=== PATIENT | female | born 1960 | race Caucasian/White ===

== ENCOUNTER 2017-11-06 18:52 | Emergency (ER) | payer SELFPAY ==
--- OUTSIDE RECORDS SUMMARY | 2017-11-06 18:57 | XMS REPORT ---
Author Author Abeba Celaya [facility] Address [address] [place], [place] [id number] Care Team Providers Care Purchasing Engineer Name Role Phone Abeba Celaya PCP Abeba Celaya PreferredProvider Allergies and Adverse Reactions Name Reaction Notes NO KNOWN DRUG ALLERGIES Plan of Treatment Planned Activity Comments Planned Date Planned Time Plan/Goal Urine Culture, [place] Count 11/01/2017 12:00 AM Medications Active Name Start Date Estimated Completion Date SIG Comments levothyroxine 75 mcg oral tablet 05/06/2017 TAKE 1 BY MOUTH EVERY MORNING DAILY omeprazole 40 mg oral capsule,delayed release(DR/EC) 05/30/2017 take 1 capsule (40 mg) by oral route once daily before a meal for 90 days Zantac 150 mg oral tablet 10/18/2017 11/17/2017 1 am and 1 pm Cipro 500 mg oral tablet 11/01/2017 11/08/2017 take 1 tablet (500 mg) by oral route every 12 hours for 7 days Zorvolex 35 mg oral capsule 11/01/2017 12/01/2017 take 1 capsule (35 mg) by oral route 3 times per day for 30 days Name Start Date Expiration Date SIG Comments Retin-A topical cream 0.025 % apply to the affected area(s) by topical route once daily at bedtime Zithromax Z-Nathaniel 250 mg oral tablet 09/07/2016 09/12/2016 take 2 tablets (500 mg) by oral route once daily for 1 day then 1 tablet (250 mg) by oral route once daily for 4 days Zorvolex 35 mg oral capsule 10/18/2017 10/23/2017 take 1 capsule (35 mg) by oral route 3 times per day for 5 days Discontinued Name Start Date Discontinued Date SIG Comments Retin-A topical cream 0.025 % 04/30/2014 03/08/2017 apply to the affected area(s) by topical route once daily at bedtime Sunscreen SPF 30 04/30/2014 03/08/2017 apply q2h while outdoors, q1h if swimming or sweating Vaseline 04/30/2014 03/08/2017 apply to treated area Protonix 40 mg oral tablet,delayed release (DR/EC) 03/08/2017 11/01/2017 TAKE 1 BY MOUTH DAILY amoxicillin 875 mg oral tablet 04/07/2017 10/18/2017 take 1 tablet (875 mg) by oral route every 12 hours for 10 days esomeprazole magnesium 40 mg oral capsule,delayed release(DR/EC) 05/06/2017 take 1 capsule (40 mg) by oral route once daily for 90 days Problem List Description Status Onset Actinic keratosis Active 04/30/2014 Hypothyroidism (acquired) Active 04/15/2017 GERD without esophagitis Active 04/15/2017 Atrophic Vaginitis Active 04/15/2017 Menopause Active 04/15/2017 Vital Signs Date Time BP-Sys(mm[Hg] BP-Humera(mm[Hg]) HR(bpm) RR(rpm) Temp WT HT HC BMI BSA BMI Percentile O2 Sat(%) 11/01/2017 11:52:00 AM 128 mmHg 78 mmHg 82 bpm 18 rpm 98.1 F 200 lbs 67 in 31.3241 kg/m 2.0709 m 99 % 10/18/2017 3:24:00 PM 132 mmHg 82 mmHg 78 bpm 18 rpm 98.8 F 200.25 lbs 67 in 31.36 kg/m2 2.07 m2 98 % 03/08/2017 8:35:00 AM 124 mmHg 74 mmHg 82 bpm 18 rpm 97.8 F 189.375 lbs 67 in 29.66 kg/m 2.0151 m 97 % 04/30/2014 11:48:00 AM 180 lbs 67 in 28.1917 kg/m 1.96 m2 Social History Name Description Comments Tobacco Never smoker Alcohol Never 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 Date Ordered Description Order Status 03/08/2017 12:00 AM LIPID PANEL Reviewed 03/08/2017 12:00 AM COMPLETE CBC W/AUTO DIFF WBC Reviewed 03/08/2017 12:00 AM COMPREHEN METABOLIC PANEL Reviewed 03/08/2017 12:00 AM ASSAY THYROID STIM HORMONE Reviewed 03/08/2017 12:00 AM ASSAY TRIIODOTHYRONINE (T3) Reviewed 03/08/2017 12:00 AM ASSAY OF FREE THYROXINE Reviewed 03/08/2017 12:00 AM ROUTINE VENIPUNCTURE Reviewed 11/01/2017 11:58 AM URINALYSIS AUTO W/O SCOPE Reviewed 11/01/2017 12:00 AM URINALYSIS AUTO W/O SCOPE Reviewed Results Summary Date and Description Results 03/08/2017 8:55 AM WBC 5.5 RBC 4.79 HGB 15.10 g/dLHCT 45.40 %MCV 95.0 fLMCH 31.50 pgMCHC 33.30 g/dLRDW SD 43 RDW CV 12.30 %MPV 10.10 fLPLT 266 NRBC# 0.00 NRBC% 0.0 %NEUT 67.90 %%LYMP 23.90 %%MONO 6.40 %%EOS 0.90 %%BASO 0.70 %#NEUT 3.72 #LYMP 1.31 #MONO 0.35 #EOS 0.05 #BASO 0.04 MANUAL DIFF NOT IND TSH 2.340 uIU/mLFREE T4 1.19 T3 TOTAL 74.0 ng/dLGLUCOSE 107.0 mg/dLSODIUM 141.0 mmol/ LPOTASSIUM 4.10 mmol/LCHLORIDE 102.0 mmol/LCO2 30.0 mmol/LBUN 8.0 mg/ dLCREATININE 0.80 mg/dLSGOT/AST 24.0 IU/LSGPT/ALT 30.0 IU/LALK PHOS 87.0 IU/ LTOTAL PROTEIN 7.50 g/dLALBUMIN 4.80 g/dLTOTAL BILI 0.50 mg/dLCALCIUM 10.0 mg/ dLAGE 57 GFR NonAA 74 GFR AA 90 eGFR >60 mL/min/1.73meGFR AA* >60 TRIGLYCERIDES 113.0 mg/dLCHOLESTEROL 218.0 mg/dLHDL 59.0 mg/dLTOT CHOL/HDL 3.7 LDL (CALC) 136.0 mg/dL 11/01/2017 11:58 AM Clarity Ur cloudy Urine-Color pale yellow Glucose Ur-sCnc negative Bilirub Ur Ql negative Ketones Ur Ql Strip negative Sp Gr Ur Qn 1.000 Hgb Ur Ql Strip negative pH Ur-LsCnc 7.0 Prot Ur Ql Strip trace Urobilinogen Ur- mCnc negative Nitrite Ur Ql Strip negative WBC # Ur moderate History Of Immunizations Not available. History of Past Illness Name Date of Onset Comments No hx of skin cancer Actinic keratosis Seborrheic keratoses, inflamed Seborrheic keratosis Benign nevus Actinic keratosis 04/30/2014 Hypothyroidism GERD Hypothyroidism (acquired) 04/15/2017 GERD without esophagitis 04/15/2017 Atrophic Vaginitis 04/15/2017 Menopause 04/15/2017 Actinic keratosis Apr 30 2014 11:50AM General medical examination; routine general medical examination at a health care facility Mar 08 2017 8:38AM Hypothyroidism (acquired) Mar 08 2017 8:38AM GERD without esophagitis Mar 08 2017 8:38AM Atrophic vaginitis Mar 08 2017 8:38AM Menopause Mar 08 2017 8:38AM Acid Reflux Oct 18 2017 3:27PM Rib pain on left side Oct 18 2017 3:27PM Arthralgia of right temporomandibular joint Oct 18 2017 3:27PM Acute mucoid otitis media of right ear Nov 01 2017 11:58AM Cystitis Nov 01 2017 11:58AM Arthralgia of right temporomandibular joint Nov 01 2017 11:58AM Rib pain on left side Nov 01 2017 11:58AM Payers Insurance Name Company Name Plan Name Plan Number Policy Number Policy Group Number Start Date BCBS [facility] [id number] N/A BCBS [employer] [facility] [id number] N/A History of Encounters Visit Date Visit Type Provider 11/01/2017 Office visit Abeba Celaya APRN 10/18/2017 Office visit Abeba Celaya LIQUOR DEPARTMENT MANAGER 03/08/2017 Office visit 03/08/2017 Office visit Abeba Celaya LIQUOR DEPARTMENT MANAGER 04/30/2014 Office visit Shanelle العلي MD
--- OUTSIDE RECORDS SUMMARY | 2017-11-06 18:57 | XMS REPORT ---
Author Author Abeba Celaya [facility] Address [address] [place], [place] [id number] Care Team Providers Care Door Clamper Name Role Phone Abeba Celaya PCP Abeba Celaya PreferredProvider Allergies and Adverse Reactions Name Reaction Notes NO KNOWN DRUG ALLERGIES Plan of Treatment Not available. Medications Active Name Start Date Estimated Completion Date SIG Comments Protonix 40 mg oral tablet,delayed release (DR/EC) 03/08/2017 TAKE 1 BY MOUTH DAILY esomeprazole magnesium 40 mg oral capsule,delayed release(DR/EC) 05/06/2017 take 1 capsule (40 mg) by oral route once daily for 90 days levothyroxine 75 mcg oral tablet 05/06/2017 TAKE 1 BY MOUTH EVERY MORNING DAILY omeprazole 40 mg oral capsule,delayed release(DR/EC) 05/30/2017 take 1 capsule (40 mg) by oral route once daily before a meal for 90 days Zantac 150 mg oral tablet 10/18/2017 11/17/2017 1 am and 1 pm Zorvolex 35 mg oral capsule 10/18/2017 10/23/2017 take 1 capsule (35 mg) by oral route 3 times per day for 5 days Name Start Date Expiration Date SIG Comments Retin-A topical cream 0.025 % apply to the affected area(s) by topical route once daily at bedtime Zithromax Z-Nathaniel 250 mg oral tablet 09/07/2016 09/12/2016 take 2 tablets (500 mg) by oral route once daily for 1 day then 1 tablet (250 mg) by oral route once daily for 4 days Discontinued Name Start Date Discontinued Date SIG Comments Retin-A topical cream 0.025 % 04/30/2014 03/08/2017 apply to the affected area(s) by topical route once daily at bedtime Sunscreen SPF 30 04/30/2014 03/08/2017 apply q2h while outdoors, q1h if swimming or sweating Vaseline 04/30/2014 03/08/2017 apply to treated area amoxicillin 875 mg oral tablet 04/07/2017 10/18/2017 take 1 tablet (875 mg) by oral route every 12 hours for 10 days Problem List Description Status Onset Actinic Keratosis Active 04/30/2014 Hypothyroidism (acquired) Active 04/15/2017 GERD without esophagitis Active 04/15/2017 Atrophic Vaginitis Active 04/15/2017 Menopause Active 04/15/2017 Vital Signs Date Time BP-Sys(mm[Hg] BP-Humera(mm[Hg]) HR(bpm) RR(rpm) Temp WT HT HC BMI BSA BMI Percentile O2 Sat(%) 10/18/2017 3:24:00 PM 132 mmHg 82 mmHg 78 bpm 18 rpm 98.8 F 200.25 lbs 67 in 31.3633 kg/m 2.0722 m 98 % 03/08/2017 8:35:00 AM 124 mmHg 74 mmHg 82 bpm 18 rpm 97.8 F 189.375 lbs 67 in 29.66 kg/m2 2.02 m2 97 % 04/30/2014 11:48:00 AM 180 lbs 67 in 28.19 kg/m2 1.96 m2 Social History Name Description Comments [...] Reviewed 03/08/2017 12:00 AM ROUTINE VENIPUNCTURE Reviewed Results Summary Date and Description Results [...] mg/dLTOT CHOL/HDL 3.7 LDL (CALC) 136.0 mg/dL History Of Immunizations Not available. History of Past Illness Name Date of Onset Comments No hx of skin cancer Actinic Keratosis Seborrheic keratoses, inflamed Seborrheic keratosis Benign nevus Actinic Keratosis 04/30/2014 Hypothyroidism GERD Hypothyroidism (acquired) 04/15/2017 GERD [...] right temporomandibular joint Oct 18 2017 3:27PM Payers Insurance Name Company Name Plan Name Plan Number Policy Number Policy Group Number Start Date BCBS [facility] [id number] N/A BCBS [facility] [id number] N/A History of Encounters Visit Date Visit Type Provider 10/18/2017 Office visit Aebba Celaya LINING FINISHER 03/08/2017 Office visit 03/08/2017 Office visit Abeba Celaya LINING FINISHER 04/30/2014 Office visit Shanelle العلي MD
--- OUTSIDE RECORDS SUMMARY | 2017-11-06 18:58 | XMS REPORT ---
Author Author Abeba Celaya [facility] Address [address] [place], [place] [id number] Care Team Providers Care Purchasing Intern Name Role Phone Abeba Celaya PCP [phone] Abeba Celaya PreferredProvider [phone] Allergies and Adverse Reactions Name Reaction Notes NO KNOWN DRUG ALLERGIES Plan of Treatment Not available. Medications Active Name Start Date Estimated Completion Date SIG Comments levothyroxine 75 mcg oral tablet 03/08/2017 TAKE 1 BY MOUTH EVERY MORNING DAILY Protonix 40 mg oral tablet,delayed release (DR/EC) 03/08/2017 TAKE 1 BY MOUTH DAILY amoxicillin 875 mg oral tablet 04/07/2017 take 1 tablet (875 mg) by oral route every 12 hours for 10 days Name Start Date Expiration Date SIG [...] Vaseline 04/30/2014 03/08/2017 apply to treated area Problem List Description Status Onset Actinic Keratosis Active 04/30/2014 Vital Signs Date Time BP-Sys(mm[Hg] BP-Humera(mm[Hg]) HR(bpm) RR(rpm) Temp WT HT HC BMI BSA BMI Percentile O2 Sat(%) 03/08/2017 8:35:00 AM 124 mmHg 74 mmHg 82 bpm 18 rpm 97.8 F 189.375 lbs 67 in 29.66 kg/m2 2.02 m2 97 % 04/30/2014 11:48:00 AM 180 lbs 67 in 28.19 kg/m2 1.9646 m Social History Name Description Comments Tobacco Never [...] Benign nevus Actinic Keratosis 04/30/2014 Hypothyroidism GERD Actinic keratosis Apr 30 2014 11:50AM General medical examination; routine general medical examination at a [facility] facility Mar 08 2017 8:38AM Hypothyroidism (acquired) Mar 08 2017 8:38AM GERD without esophagitis Mar 08 2017 8:38AM Atrophic vaginitis Mar 08 2017 8:38AM Menopause Mar 08 2017 8:38AM Payers Insurance Name Company Name Plan Name Plan Number Policy Number Policy Group Number Start Date [facility] [id number] N/A BCBS [facility] [id number] N/A History of Encounters Visit Date Visit Type Provider 03/08/2017 Office visit 03/08/2017 Office visit Abeba Celaya APRN 04/30/2014 Office visit Shanelle العلي MD
--- OUTSIDE RECORDS SUMMARY | 2017-11-06 18:58 | XMS REPORT ---
Author Author Abeba Celaya [facility] Address [address] [place], [place] [id number] Care Team Providers Care Oracle Fusion Consultant Name Role Phone Abeba Celaya PCP Abeba [...] area Problem List Description Status Onset Actinic keratosis Active 04/30/2014 Hypothyroidism (acquired) Active 04/15/2017 GERD without esophagitis Active 04/15/2017 Atrophic vaginitis Active 04/15/2017 Menopause Active 04/15/2017 Vital Signs [...] (acquired) 04/15/2017 GERD without esophagitis 04/15/2017 Atrophic vaginitis 04/15/2017 Menopause 04/15/2017 Actinic keratosis Apr 30 [...] Policy Group Number Start Date BCBS [facility] [id number] N/A BCBS [employer] [facility] [id number] N/A History of Encounters Visit Date Visit Type Provider 03/08/2017 Office visit 03/08/2017 Office visit Abeba Celaya APRN 04/30/2014 Office visit Shanelle العلي MD
--- OUTSIDE RECORDS SUMMARY | 2017-11-06 18:58 | XMS REPORT ---
Author Author Abeba Celaya [facility] Address [address] [place], [place] [id number] Care Team Providers Care Cloth Printer Name Role Phone Abeba Celaya PCP Abeba [...] daily before a meal for 90 days Name Start Date Expiration Date SIG [...] Policy Number Policy Group Number Start Date [id number] [id number]/A History of Encounters Visit Date Visit Type Provider 03/08/2017 Office visit 03/08/2017 Office visit Abeba Celaya APRN 04/30/2014 Office visit Shanelle العلي MD
[2017-11-07] MEDS ORDERED: NITR-65 PO (03:45)
[2017-11-07] MEDS ORDERED: CYCL10TA9 PO (03:45)
[2017-11-07] MEDS ORDERED: SUCR1TAB36 PO (03:45)
== END 2017-11-06 19:03 | disposition left against medical advice (07) ==
LOC: EDUNIT# 18:52 → ER 18:54
DX: R11.0 Nausea (principal)

== ENCOUNTER 2017-11-06 23:29 | Emergency (ER) | payer BC, OTHER ==
[~2017-11-06] VITALS: Ht 170.2 cm; Wt 90.7 kg
[2017-11-07 00:15] LABS: BILIRUBIN,URINE NEGATIVE (NEGATIVE); CLARITY,URINE CLEAR; COLOR,URINE YELLOW; GLUCOSE, URINE (UA) NEGATIVE (NEGATIVE); KETONES,URINE NEGATIVE (NEGATIVE); LEUKOCYTE ESTERASE ,URINE 2+ (NEGATIVE); NITRITE,URINE NEGATIVE (NEGATIVE); PH,URINE 7 (5-9); PROTEIN,URINE NEGATIVE (NEGATIVE); UROBILINOGEN,URINE NORMAL (NORMAL)
[2017-11-07 00:17] LABS: BASOPHILS # (AUTO) 0.1 10^3/uL (0.0-0.1); BASOPHILS % (AUTO) 0 % (0-10); EOSINOPHILS % (AUTO) 0 % (0-10); HEMATOCRIT 42 % (35-52); HEMOGLOBIN 14.8 G/DL (11.5-16.0); LYMPHOCYTES # (AUTO) 1.5 X 10^3 (1.0-4.0); LYMPHOCYTES % (AUTO) 13 % (12-44); MEAN CORPUSCULAR HEMOGLOBIN 33 PG (25-34); MEAN CORPUSCULAR HGB CONC 36 G/DL (32-36); MEAN CORPUSCULAR VOLUME 91 FL (80-99); MEAN PLATELET VOLUME 9.7 FL (7.4-10.4); MONOCYTES # (AUTO) 0.8 X 10^3 (0.0-1.0); MONOCYTES % (AUTO) 7 % (0-12); NEUTROPHILS % (AUTO) 80 % (42-75); PLATELET COUNT 280 10^3/uL (130-400); RED BLOOD COUNT 4.56 10^6/uL (4.35-5.85); RED CELL DISTRIBUTION WIDTH 12.6 % (10.0-14.5); WHITE BLOOD COUNT 11.3 10^3/uL (4.3-11.0)
[2017-11-07 00:23] LABS: RBC,URINE 0-2 /HPF; WBC,URINE 0-2 /HPF
[2017-11-07 00:24] LABS: AMORPHOUS SEDIMENT,UR FEW AMOR PHOSPHATE /LPF; BACTERIA,URINE TRACE /HPF
[2017-11-07 00:35] LABS: PROTHROMBIN TIME PATIENT 13.2 SEC (12.2-14.7)
[2017-11-07 00:43] LABS: ALANINE AMINOTRANSFERASE 27 U/L (0-55); ALBUMIN 4.7 GM/DL (3.2-4.5); ALKALINE PHOSPHATASE 85 U/L (40-136); AMYLASE 36 U/L (25-125); BILIRUBIN,TOTAL 0.6 MG/DL (0.1-1.0); BUN/CREATININE RATIO 11; CALCIUM 9.9 MG/DL (8.5-10.1); CARBON DIOXIDE 20 MMOL/L (21-32); CHLORIDE 107 MMOL/L (98-107); CREATININE SERUM 0.82 MG/DL (0.60-1.30); GFR ESTIMATED > 60; GLUCOSE 117 MG/DL (70-105); LIPASE 12 U/L (8-78); MAGNESIUM 2.2 MG/DL (1.8-2.4); POTASSIUM 3.8 MMOL/L (3.6-5.0); SODIUM 140 MMOL/L (135-145); TOTAL PROTEIN 7.4 GM/DL (6.4-8.2)
[2017-11-07] MEDS ORDERED: KETOROLAC 30 MG/ML VIAL IVP STA (00:56)
[2017-11-07] MEDS ORDERED: LACTATED RINGERS 1,000 ML IV ONE (00:56)
[2017-11-07] MEDS ORDERED: IOHEXOL 350 MG/ML 150 ML (OMNIPAQUE 350) VIAL IV ONE (01:00)
[2017-11-07] MEDS ORDERED: NS 250 ML (IVPB) BAG IV ONE (01:00)
[2017-11-07] MEDS ORDERED: ONDANSETRON 4 MG/2 ML (SDV) Z0FRAN IVP ONE (01:00)
--- NOTE | 2017-11-07 01:33 | ED GI ---
General Chief Complaint: Abdominal/GI Problems Stated Complaint: NAUSEA Nursing Triage Note: pt states nausea, was seen at urgent care today, given zofran has taken 3 today. last dose 2100 Sepsis Screen: No Definite Risk Source of Information: Patient History of Present Illness Date Seen by Provider: Nov 06, 2017 Time Seen by Provider: 23:37 Initial Comments PT ARRIVES VIA POV FROM HOME PT C/O NAUSEA SINCE 10/15/17 PT STATES SHE HAS HAD PAIN IN LEFT LOWER RIB AREA AND EPIGASTRIC AREA SINCE THAT TIME WELL--PT STATES SHE JUMPED INTO A BALL PIT, AND WHEN SHE WAS GETTING OUT, SHE TWISTED AND FELT SOMETHING POP IN HER LEFT LOWER CHEST-RIB/LUQ AREA. ALL SYMPTOMS BEGAN THEN SYMPTOMS COME AND GO, BUT TODAY IS CONSTANT NO VOMITING HAS HAD 3 LOOSE STOOLS TODAY, BUT NOT ACTUAL DIARRHEA. DENIES FEVER, BUT GETS HOT AND CLAMMY AND SWEATY, AND THEN GETS SHAKEY AND FREEZING NO URINARY SYMPTOMS NOTHING WORSENS OR IMPROVES SYMPTOMS STATES SHE IS BELCHING ALOT NO SHORTNESS OF BREATH OR PAIN WITH BREATHING SEEN BY CHIROPRACTOR 2 WEEKS AGO, NO RELIEF. SEEN BY AUTOMOTIVE REFINISHER IN [place] 10/18/17 AND WAS GIVEN AN ANTI-INFLAMMATORY. NO RELIEF SEEN THERE AGAIN ON 11/01/17--DX WITH UTI AND GIVEN RX FOR CIPRO, PT STATES SHE HAS NOT HAD ANY URINARY SYMPTOMS. PT STATES SHE QUIT TAKING THE CIPRO BECAUSE SHE THOUGHT IT WAS MAKING HER SICK PT WAS IN ER EARLIER THIS EVENING, THEN LEFT WITHOUT BEING SEEN PT ALSO WENT TO URGENT CARE IN [place] TODAY FOR THIS PROBLEM AND WAS GIVEN RX FOR ZOFRAN . HAS TAKEN 3 WITHOUT RELIEF. LAST DOSE WAS 2100. NO HISTORY OF SIMILAR PCP: AUTOMOTIVE REFINISHER IN [place] Allergies and Home Medications Allergies Coded Allergies: No Known Drug Allergies (Unverified , 11/07/17) Home Medications Cyclobenzaprine HCl 10 Mg Tablet, 10 MG PO Q8H Prescribed by: DUKE TURPIN on 11/07/17344 Nitrofurantoin Monohyd/M-Cryst 100 Mg Capsule, 100 MG PO BID Prescribed by: DUKE TURPIN on 11/07/17344 Sucralfate 1 Gm Tablet, 1 GM PO QIDACHS Prescribed by: DUKE TURPIN on 11/07/17344 Patient Home Medication List Home Medication List Reviewed: Yes Review of Systems Constitutional: see HPI, chills, diaphoresis; No dizziness; fever EENTM: No Symptoms Reported Respiratory: No Symptoms Reported Cardiovascular: See HPI, Chest Pain Gastrointestinal: See HPI, Abdominal Pain, Nausea; Denies Vomiting Genitourinary: No Symptoms Reported, See HPI Musculoskeletal: see HPI; No back pain Skin: no symptoms reported; No rash Psychiatric/Neurological: No Symptoms Reported Endocrine: No Symptoms Reported Hematologic/Lymphatic: No Symptoms Reported Past Veqtdcl-Mtfezl-Phzztd Hx Patient Social History Alcohol Use: Past History (NONE IN 30 YEARS, PER PT ON 11/06/17) Recreational Drug Use: Yes (THC YEARS AGO, PER PT ON 11/06/17) Smoking Status: Never a Smoker Recent Foreign Travel: No Contact w/Someone Who Travel: No Recent Infectious Disease Expo: No Seasonal Allergies Seasonal Allergies: Yes Past Medical History Surgeries: Yes (APPY; SAHNNAN; HYST/BSO) Appendectomy, Gallbladder, Hysterectomy, Oophorectomy Respiratory: No Cardiac: No Neurological: No : No MEDICAL FIELD REPRESENTATIVE History: Hysterectomy, Menopausal Genitourinary: No Gastrointestinal: Yes Gastroesophageal Reflux (SELF DX--TAKES NEXIUM) Musculoskeletal: No Endocrine: Yes Hypothyroidsim HEENT: No Cancer: No Psychosocial: No Integumentary: No Blood Disorders: No Physical Exam Vital Signs Vital Signs - First Documented 11/06/17 23:45 Temp 97.0 Pulse 95 Resp 20 B/P (MAP) 133/75 (94) Pulse Ox 94 O2 Delivery Room Air Capillary Refill : Less Than 3 Seconds General Appearance: WD/WN, no apparent distress HEENT: PERRL/EOMI Neck: normal inspection Respiratory: chest non-tender, normal breath sounds, no respiratory distress, no accessory muscle use Cardiovascular: regular rate, rhythm, no edema, no JVD, no murmur Gastrointestinal: normal bowel sounds, non tender, soft, no organomegaly Extremities: normal inspection, no pedal edema, no calf tenderness, normal capillary refill Back: normal inspection, no CVA tenderness, no vertebral tenderness Neurologic/Psychiatric: strapper II-XII nml as tested, no motor/sensory deficits, alert, normal mood/affect, oriented x 3 Skin: normal color, warm/dry Progress/Results/Core Measures Results/Orders Lab Results Laboratory Tests Test 11/07/17 00:05 Range/Units White Blood Count 11.3 H 4.3-11.0 10^3/uL Red Blood Count 4.56 4.35-5.85 10^6/uL Hemoglobin 14.8 11.5-16.0 G/DL Hematocrit 42 35-52 % Mean Corpuscular Volume 91 80-99 FL Mean Corpuscular Hemoglobin 33 25-34 PG Mean Corpuscular Hemoglobin Concent 36 32-36 G/DL Red Cell Distribution Width 12.6 10.0-14.5 % Platelet Count 280 130-400 10^3/uL Mean Platelet Volume 9.7 7.4-10.4 FL Neutrophils (%) (Auto) 80 H 42-75 % Lymphocytes (%) (Auto) 13 12-44 % Monocytes (%) (Auto) 7 0-12 % Eosinophils (%) (Auto) 0 0-10 % Basophils (%) (Auto) 0 0-10 % Neutrophils # (Auto) 9.0 H 1.8-7.8 X 10^3 Lymphocytes # (Auto) 1.5 1.0-4.0 X 10^3 Monocytes # (Auto) 0.8 0.0-1.0 X 10^3 Eosinophils # (Auto) 0.0 0.0-0.3 10^3/uL Basophils # (Auto) 0.1 0.0-0.1 10^3/uL Prothrombin Time 13.2 12.2-14.7 SEC INR Comment 1.0 0.8-1.4 Activated Partial Thromboplast Time 24 24-35 SEC Urine Color YELLOW Urine Clarity CLEAR Urine pH 7 5-9 Urine Specific [place] 1.015 L 1.016-1.022 Urine Protein NEGATIVE NEGATIVE Urine Glucose (UA) NEGATIVE NEGATIVE Urine Ketones NEGATIVE NEGATIVE Urine Nitrite NEGATIVE NEGATIVE Urine Bilirubin NEGATIVE NEGATIVE Urine Urobilinogen NORMAL NORMAL MG/DL Urine Leukocyte Esterase 2+ H NEGATIVE Urine RBC (Auto) 3+ H NEGATIVE Urine RBC 0-2 /HPF Urine WBC 0-2 /HPF Urine Squamous Epithelial Cells 10-25 H /HPF Urine Crystals PRESENT H /LPF Urine Amorphous Sediment FEW KAIA PHOSPHATE H /LPF Urine Bacteria TRACE /HPF Urine Casts NONE /LPF Urine Mucus NEGATIVE /LPF Urine Culture Indicated NO Sodium Level 140 135-145 MMOL/L Potassium Level 3.8 3.6-5.0 MMOL/L Chloride Level 107 98-107 MMOL/L Carbon Dioxide Level 20 L 21-32 MMOL/L Anion Gap 13 5-14 MMOL/L Blood Urea Nitrogen 9 7-18 MG/DL Creatinine 0.82 0.60-1.30 MG/DL Estimat Glomerular Filtration Rate > 60 BUN/Creatinine Ratio 11 Glucose Level 117 H 70-105 MG/DL Calcium Level 9.9 8.5-10.1 MG/DL Magnesium Level 2.2 1.8-2.4 MG/DL Total Bilirubin 0.6 0.1-1.0 MG/DL Aspartate Amino Transf (AST/SGOT) 22 5-34 U/L Alanine Aminotransferase (ALT/SGPT) 27 0-55 U/L Alkaline Phosphatase 85 40-136 U/L Troponin I < 0.30 <0.30 NG/ML B-Type Natriuretic Peptide 88.2 <100.0 PG/ML Total Protein 7.4 6.4-8.2 GM/DL Albumin 4.7 H 3.2-4.5 GM/DL Amylase Level 36 25-125 U/L Lipase 12 8-78 U/L My Orders Orders - DUKE TURPIN DO Saline Lock/Iv-Start (11/06/17 23:47) Ekg Tracing (11/06/17 23:47) Amylase (11/06/17 23:47) BNP (11/06/17 23:47) Cbc With Automated Diff (11/06/17 23:47) Comprehensive Metabolic Panel (11/06/17 23:47) Lipase (11/06/17 23:47) Magnesium (11/06/17 23:47) Protime With Inr (11/06/17 23:47) Partial Thromboplastin Time (11/06/17 23:47) Troponin I (11/06/17 23:47) Ua Culture If Indicated (11/06/17 23:47) Ct Amelie Chest/Noang Abd-Pelv W (11/07/17 00:55) Ketorolac Injection (Toradol Injection) (11/07/17 00:56) Ondansetron Injection (Zofran Injectio (11/07/17 01:00) Saline Lock/Iv-Start (11/07/17 00:56) Lactated Ringers (Lr 1000 Ml Iv Solution (11/07/17 00:56) Iohexol Injection (Omnipaque 350 Mg/Ml 1 (11/07/17 01:00) Ns (Ivpb) (Sodium Chloride 0.9%) (11/07/17 01:00) Lorazepam Injection (Ativan Injection) (11/07/17 02:02) Medications Given in ED Current Medications Medications Dose Ordered Sig/Elliott Route Start Time Stop Time Status Last Admin Dose Admin Lactated Ringer's 1,000 ml @ 0 mls/hr Q0M ONCE IV 11/07/17 00:56 11/07/17 00:58 DC 11/07/17 01:21 0 MLS/HR Lorazepam 2 mg STK-MED ONCE .ROUTE 11/07/17 02:02 11/07/17 02:04 DC 11/07/17 02:05 2 MG Ondansetron HCl 4 mg ONCE ONCE IVP 11/07/17 01:00 11/07/17 01:01 DC 11/07/17 01:22 4 MG Vital Signs/I&O 11/06/17 11/07/17 23:45 03:57 Temp 97.0 97.0 Pulse 95 72 Resp 20 20 B/P (MAP) 133/75 (94) 125/71 Pulse Ox 94 96 O2 Delivery Room Air Room Air Blood Pressure Mean: 94 Progress Progress Note : Progress Note PT BECAME ANXIOUS AND STARTED HYPERVENTILATING IN CT ROOM, AFRAID TO GO INTO SCANNER. GIVEN ATIVAN AND THOSE SYMPTOMS RESOLVED, AND PT NOW CALM STATES ZOFRAN CAUSES HER LEGS TO TWITCH RANDOMLY ALL SYMPTOMS RESOLVED AT DISMISSAL Initial ECG Impression Date: Nov 06, 2017 Initial ECG Impression Time: 23:56 Initial ECG Rate: 81 Initial ECG Rhythm: Normal Sinus (WITH PVC) Diagnostic Imaging Comments CXR--NO ACUTE PROCESS, PENDING RADIOLOGIST REVIEW CT CHEST ANGIOGRAM/ ABDOMEN AND PELVIS--NO ACUTE PROCESS, NO RIB FRACTURES, PER [facility] VIA FAX @ [phone] Reviewed: Reviewed by Me Departure Impression Primary Impression: Abdominal wall pain Additional Impressions: Left-sided chest wall pain Urinary tract infection Disposition: 01 HOME, SELF-CARE Condition: Improved Departure-Patient Inst. Referrals: NO,LOCAL PHYSICIAN (PCP/Family) Primary Care Physician Patient Instructions: Abdominal Muscle Strain (DC), Costochondritis (DC), Muscle Strain (DC), Urinary Tract Infection, Adult (DC) Add. Discharge Instructions: LOTS OF CLEAR LIQUIDS TAKE YOUR REGULAR MEDICATIONS PRESCRIBED FOLLOW UP WITH YOUR DR IN 2-3 DAYS FOR FURTHER CARE RETURN TO ER IF WORSE All discharge instructions reviewed with patient and/or family. Voiced understanding. Scripts Nitrofurantoin Monohyd/M-Cryst (Macrobid 100 mg Capsule) 100 Mg Capsule 100 MG PO BID, #20 CAP Prov: DUKE TURPIN DO 11/07/17 Cyclobenzaprine HCl (Cyclobenzaprine HCl) 10 Mg Tablet 10 MG PO Q8H, #15 TAB Prov: DUKE TURPIN DO 11/07/17 Sucralfate (Carafate) 1 Gm Tablet 1 GM PO QIDACHS, #60 TAB Prov: DUKE TURPIN DO 11/07/17 DUKE TURPIN DO Nov 07, 2017 01:33
[2017-11-07] MEDS ORDERED: LORazepam INJ 2 MG/ML (ATIVAN) VIAL ONE (02:02)
[2017-11-07] MEDS ORDERED: SUCR1TAB36 PO (03:45)
[2017-11-07] MEDS ORDERED: CYCL10TA9 PO (03:45)
[2017-11-07] MEDS ORDERED: NITR-65 PO (03:45)
[2017-11-07 03:57] VITALS: BP 125/71
--- NOTE | 2017-11-07 07:59 | Diagnostic Imaging Report ---
Indication: Rib pain, possible fracture, trauma. Comparison: None. Technique: Multiple axial images were obtained of the chest and pelvis with IV contrast and 2-dimensional reconstructions. CT angio chest: The heart, pulmonary arteries and aorta are grossly normal. There was no lymphadenopathy. There is no aneurysm or dissection. No pulmonary embolism is seen. The lungs are clear throughout. There is no infiltrate, mass or effusion. Osseous structures are age appropriate. There is no fracture or osseous lesion. Impression: Negative CT angio chest. CT abdomen and pelvis: Gallbladder surgically absent. Solid organs and vascular structures and bowel grossly normal. There is no free air or free fluid. There is no hemoperitoneum. No inflammation seen. Distal ureters and urinary bladder are grossly normal. Osseous structures are age-appropriate. Impression: Negative CT abdomen and pelvis. No acute trauma identified. Agree with preliminary report. Dictated by: Dictated on workstation # [id number]
== END 2017-11-07 04:17 | disposition home or self-care (01) ==
LOC: EDUNIT# 23:29 → ER 23:30
DX: N39.0 Urinary tract infection, site not specified (principal); R07.89 Other chest pain; K21.9 Gastro-esophageal reflux disease without esophagitis; E03.9 Hypothyroidism, unspecified; F12.10 Cannabis abuse, uncomplicated; Z90.710 Acquired absence of both cervix and uterus; Z90.89 Acquired absence of other organs; Z90.49 Acquired absence of other specified parts of digestive tract
CPT/HCPCS: 36415; 71275; 74177; 80053; 81000; 82150; 83690; 83735; 83880; 84484; 85025; 85610; 85730; 93005

== ENCOUNTER 2017-11-16 05:48 | Outpatient (CLI) | payer BC ==
[~2017-11-16] VITALS: Ht 170.2 cm; Wt 90.7 kg
[~2017-11-16 05:48] MED LIST: CYCL10TA9 PO; NITR-65 PO; SUCR1TAB36 PO
[2017-11-16] MEDS ORDERED: DEXL60CA PO (12:27)
[2017-11-16] MEDS ORDERED: LEVO75TA6 PO (12:27)
== END 2017-11-16 12:31 ==
LOC: PREOP 05:48
PROVIDERS: ATTEND Surgery
DX: Z01.818 Encounter for other preprocedural examination (principal)

== ENCOUNTER 2017-11-19 10:33 | Day surgery (SDC) | payer BC ==
[~2017-11-19] VITALS: Ht 170.2 cm; Wt 90.7 kg
[~2017-11-19 10:33] MED LIST changes: +DEXL60CA PO; +LEVO75TA6 PO
[2017-11-19] MEDS ORDERED: NS IV 500 ML 500 ML ONE ×2 (10:48→12:25)
[2017-11-19] MEDS ORDERED: MIDAZOLAM 2 MG/2 ML (VERSED) VIAL IVP PRN (11:00)
[2017-11-19] MEDS ORDERED: fentaNYL INJECTION 100 MCG/2 ML AMP IVP PRN (11:00)
[2017-11-19] MEDS ORDERED: ONDANSETRON 4 MG/2 ML (SDV) Z0FRAN IVP ONE (11:00)
[2017-11-19 11:05] VITALS: BP 122/82
--- NOTE | 2017-11-19 11:08 | Conscious Sedation/ASA ---
Conscious Sedation Pre-Proced Time Reviewed: 10:30 ASA Class: 2 Airway Mallampati Classification: (red devil appropriate class) I. II. III, IV Lungs Heart ASA score ASA 1: a normal healthy patient ASA 2: a patient with a mild systemic disease (mid diabetes, controlled hypertension, obesity ASA 3: a patient with a severe systemic disease that limits activity (angina , COPD, prior Myocardial infarction) ASA 4: a patient with an incapacitating disease that is a constant threat to life (CHF, renal failure) ASA 5: a moribund patient not expected to survive 24 hrs. (ruptured aneurysm) ASA 6: a declared brain patient whose organs are being harvested. For emergent operations, add the letter E after the classification Grade 2 Sedation Plan: Analgesia, Amnesia, Plan communicated to team members, Discussed options with patient/fam, Discussed risks with patient/fam Note The patient is an appropriate candidate to undergo the planned procedure, sedation, and anesthesia. The patient immediately re-assessed prior to indication. JACOB TAYLOR MD Nov 19, 2017 11:07 am
--- NOTE | 2017-11-19 11:08 | Progress Note-Pre Operative ---
Pre-Operative Progress Note H&P Reviewed The H&P was reviewed, patient examined and no changes noted. Date Seen by Provider: Nov 19, 2017 Time Seen by Provider: 10:30 Date H&P Reviewed: Nov 19, 2017 Time H&P Reviewed: :30 Pre-Operative Diagnosis: GERD, screening colonoscopy JACOB TAYLOR MD Nov 19, 2017 11:08 am
[2017-11-19] MEDS ORDERED: ONDANSETRON 4 MG/2 ML (SDV) Z0FRAN ONE (11:09)
[2017-11-19] MEDS ORDERED: ONDANSETRON 4 MG/2 ML (SDV) Z0FRAN IV PRN (11:15)
[2017-11-19] MEDS ORDERED: morphine INJ 10 MG/ML 1ML (SYR OR VIAL) IV PRN (11:15)
[2017-11-19] MEDS ORDERED: ACETAMINOPHEN 325 MG TABLET PO PRN (11:15)
[2017-11-19] MEDS ORDERED: ONDANSETRON 4 MG/2 ML (SDV) Z0FRAN IV ONE (11:15)
[2017-11-19] MEDS ORDERED: HYDROcodone/APAP 5 MG/325 MG (LORTAB) TAB PO PRN (11:15)
[2017-11-19] MEDS: NS IV 500 ML 500 ML IV PRN ×2 (11:30→12:30)
[2017-11-19] MEDS ORDERED: fentaNYL INJECTION 100 MCG/2 ML AMP ONE (12:01)
[2017-11-19] MEDS ORDERED: LIDOCAINE JELLY 2% (XYLOCAINE) 5 ML TUBE ONE (12:01)
[2017-11-19] MEDS ORDERED: MIDAZOLAM 2 MG/2 ML (VERSED) VIAL ONE ×8 (12:01→12:24)
[2017-11-19] MEDS ORDERED: HURRICAINE EXT TUBE (BENZOCAINE) ONE (12:02)
[2017-11-19] MEDS ORDERED: proPOfol 200 MG/20 ML (DIPRIVAN) VIAL IV ONE (12:33)
[2017-11-19] MEDS ORDERED: HURRICAINE EXT TUBE (BENZOCAINE) XX ONE (13:00)
--- NOTE | 2017-11-19 13:11 | Progress Note-Post Operative ---
Post-Operative Progess Note Surgeon (s)/Kiln Car Unloader (s) Surgeon JACOB TAYLOR MD Kiln Car Unloader: none Pre-Operative Diagnosis GERD, screening colonoscopy Post-Operative Diagnosis reflux esophagitis(class B), small HH(2cm), moderate gastritis. mild sigmoid diverticulosis. Procedure & Operative Findings Date of Procedure 11/19/17 Procedure Performed/Findings EGD with bx. Colonoscopy. Anesthesia Type MAC Estimated Blood Loss Estimated blood loss (mL): minimal Specimens/Packing Specimens Removed antrum, GE jxn JACOB TAYLOR MD Nov 19, 2017 1:11 pm
--- NOTE | 2017-11-19 13:12 | Progress Note-Standard ---
Standard Progress Note Progress Notes/Assess & Plan Date Seen by Provider: Nov 19, 2017 Time Seen by Provider: 12:35 Progress/Assessment & Plan Anesthesia type: MAC ASA: 2 Called to Endo for rescues sedation. Patient fighting during EGD. Given a total of 150 mg propofol. VS per ENDO. Care to ENDO RN's. SANDY STARKEY CRNA Nov 19, 2017 13:12
--- NOTE | 2017-11-19 13:12 | Discharge Inst-Surgical ---
D/C Lap Instructions-CLAUDIA Follow Up PRN Activity as tolerated High Fiber Diet 25g or more per day Avoid Alcohol, Caffeine, Spicy [place] and Acid foods. Drink 64 fluid oz or more of fluids per day. Symptoms to Report: Fever over 101 degree F, Nausea/Vomiting If any problems/questions: Contact your physician or go to Emergency Room JACOB TAYLOR MD Nov 19, 2017 1:12 pm
[2017-11-19 13:30] VITALS: BP 96/58
--- NOTE | 2017-11-19 13:32 | Anesthesia-General Post-Op ---
MAC Patient Condition Mental Status/LOC: Same as Preop Cardiovascular: Satisfactory Nausea/Vomiting: Absent Respiratory: Satisfactory Pain: Controlled Complications: Absent Post Op Complications Complications None Follow Up Care/Instructions Patient Instructions None needed. Anesthesiology Discharge Order Discharge Order Patient is doing well, no complaints, stable vital signs, no apparent adverse anesthesia problems. No complications reported per nursing. SANDY STARKEY CRNA Nov 19, 2017 13:31
[2017-11-19 14:00] VITALS: BP 90/57
[2017-11-19 14:07] VITALS: BP 90/57
--- NOTE | 2017-11-19 18:02 | OPERATIVE REPORT ---
DATE OF SERVICE: 11/19/2017 ATTENDING PRIMARY FIELD CASHIER: Joy Celaya APRN PREOPERATIVE DIAGNOSIS: Peptic ulcer disease, gastroesophageal reflux disease, screening colonoscopy. POSTOPERATIVE DIAGNOSES: Reflux esophagitis class B, small hiatal hernia approximately 2 cm in size, moderate severity gastritis. Mild sigmoid diverticulosis. PROCEDURE: EGD with biopsy, colonoscopy. SURGEON: Dr. Jaimes. ANESTHESIA: Monitored anesthesia care. ESTIMATED BLOOD LOSS: Minimal. FINDINGS: EGD, reflux esophagitis class B, small hiatal hernia approximately 2 cm in size, moderate severity gastritis with no formal ulcerations, polyps or any neoplasms. Pylorus and duodenum appeared normal. Colonoscopy: Mild sigmoid diverticulosis. Remainder of the colon and rectum were normal. There were no polyps identified. DISPOSITION: The patient tolerated the procedure well. INDICATIONS: The patient is a 57-year-old female with a 1-week history of nausea, vomiting and discomfort in the epigastric region. She acquired a urinary tract infection and was symptomatic and started on ciprofloxacin. She felt that after starting the medications, this did cause her to have these issues with nausea; however, it did persist after discontinuation of the medication. She does have a history of gastroesophageal reflux disease and was on omeprazole 40 mg daily; however, this became ineffective. She reports that she did undergo endoscopy including EGD and colonoscopy in 2001, but does not remember any abnormalities. She does not report any family history of colon cancer; however, does have a maternal aunt with history of breast cancer. DESCRIPTION OF PROCEDURE: The patient was brought to the endoscopy suite, laid in the left lateral decubitus position with head elevated. After adequate IV pain sedative medications and monitored anesthesia care, the mouthpiece was applied. The endoscope was placed in the mouth, visualizing the pharynx and hypopharyngeal region. Vocal cords, epiglottis and vallecula identified and appeared to be normal. The endoscope was then gently intubated in the esophageal opening and esophagus insufflated. The endoscope was then advanced to the first, second and third portions of the esophagus, at the level of the GE junction, a reflux esophagitis class B identified. There were no ulcers or strictures in this region. A biopsy was taken with forceps with visualization of good hemostasis. The endoscope was then easily advanced in the stomach and endoscope retroflexed visualizing a small hiatal hernia approximately 2 cm in size. There was moderate severity gastritis noted more towards the stomach antrum; however, no formal ulcerations, polyps or any neoplasms identified. A biopsy was taken of the stomach antrum for H. pylori with visualization of good hemostasis. The endoscope was then advanced to the pylorus and the first and second portions of the duodenum, which appeared normal with no distal obstructions. The endoscope was then slowly withdrawn while taking a second look and suctioning of residual air with no additional findings. The patient tolerated this portion of the procedure well. We feel that most likely she did have some form of reaction to her medication, which exacerbated peptic ulcer disease as well as gastroesophageal reflux disease; however, appears to be doing better clinically due to time as well as incorporation of Dexilant and Carafate started in the office, which we will have her continue for now. We will also await the biopsy results. Under the same anesthesia, we then proceeded with a colonoscopy portion of the procedure. A digital rectal examination was performed, which did not reveal any significant hemorrhoids. Normal sphincter tone was felt and there were no palpable masses. The endoscope was then intubated to the anus. The rectum gently insufflated. The endoscope was then advanced to the valves of Cunningham of the rectum with no polyps or neoplasms identified. We then proceeded through the sigmoid colon where a mild sigmoid diverticulosis identified. There were no mucosal inflammatory changes to indicate any diverticulitis. The endoscope was then advanced to the remainder of the descending, transverse and ascending colon and cecum. These segments were all normal. There were no polyps or any neoplasms identified throughout the colon or rectum. The endoscope was then slowly withdrawn while taking a second look and suctioning of residual air with no additional findings. The patient tolerated the procedure well. We will have her continue with medical management with a high-fiber diet with at least 25 grams of fiber per day as well as at least 64 fluid ounces of water daily to promote soft stools on a daily basis. She does not need another colonoscopy for another 10 years, however, sooner if she becomes symptomatic. Job ID: [id number] DocumentID: [id number] Dictated Date: 11/19/2017 13:18:07 Brake Operator Helper Date: 11/19/2017 18:02:08 Dictated By: JACOB JAIMES MD
== END 2017-11-19 14:07 | disposition home or self-care (01) ==
LOC: ENDO 10:33
PROVIDERS: ATTEND Surgery
DX: Z12.11 Encounter for screening for malignant neoplasm of colon (principal); K57.30 Diverticulosis of large intestine without perforation or abscess without bleeding; K21.0 Gastro-esophageal reflux disease with esophagitis; K44.9 Diaphragmatic hernia without obstruction or gangrene; K29.70 Gastritis, unspecified, without bleeding

== ENCOUNTER → 2019-02-07 | Outpatient (CLI) | payer BC ==
--- NOTE | 2019-02-07 13:39 | Diagnostic Imaging Report ---
CLINICAL INDICATION: Patient with epigastric pain. COMPARISON: None. PROCEDURE: Solid Gastric emptying study After oral ingestion of 0.97 millicuries of technetium 99M sulfur colloid, mixed with scrambled egg, sequential imaging of the abdomen is performed. Computer analysis is performed and gastric emptying curves are calculated. FINDINGS: There is gastric emptying demonstrated with sequential imaging. The residual retained gastric activity: 1 hour: 66% (less than 30% equals rapid and greater than 90% equals delayed) 2 hours: 36% (greater than 60% represents abnormally delayed) 3 hours: 27% (greater than 30% represents abnormally delayed) 4 hours: 3% (greater than 10% represents abnormally delayed) IMPRESSION: Normal gastric emptying study. Dictated by: Dictated on workstation # [id number]
== END ==
LOC: CARD 08:50
PROVIDERS: ATTEND Internal Medicine Gastroenterology
DX: K21.9 Gastro-esophageal reflux disease without esophagitis (principal); K29.70 Gastritis, unspecified, without bleeding; R14.2 Eructation
CPT/HCPCS: 78264